=== PATIENT | female | born 1985 | race Caucasian/White ===

== ENCOUNTER 2018-02-09 16:06 | Emergency (ER) | payer OTHER ==
[~2018-02-09] VITALS: Ht 167.6 cm; Wt 74.8 kg
[2018-02-09] MEDS ORDERED: PROZAC10 M1 PO (16:17)
[2018-02-09 16:42] LABS: ABSOLUTE BASOPHILS 0.1 thou/uL (0.0-0.2); ABSOLUTE MONOCYTES 0.6 thou/uL (0.0-1.2); ABSOLUTE NEUTROPHILS 3.3 thou/uL (1.6-8.1); BASOPHILS 0.8 %; EOSINOPHILS 0.1 %; HEMOGLOBIN 14.9 gm/dL (12.0-15.0); LYMPHOCYTES 43.1 %; MCH 29.8 pg (26.0-34.0); MCHC 33.8 g/dL (28.0-37.0); MCV 88.2 fL (80.0-100.0); MONOCYTES 8.3 %; MPV 8.7 fl. (7.2-11.1); NUCLEATED RBCS 0 /100WBC; PLATELET COUNT* 393 thou/uL (150-400); POLYS 47.7 %; RBC 4.99 mil/uL (4.20-5.00); RDW-CV 13.2 % (10.5-14.5); WBC 6.9 thou/uL (4.0-11.0)
[2018-02-09 16:46] LABS: ANION GAP 19 mmol/L (7-16); BUN 7 mg/dL (7-18); CALCIUM 8.7 mg/dL (8.5-10.1); CHLORIDE 103 mmol/L (98-107); CO2 21 mmol/L (21-32); CREATININE 0.7 mg/dL (0.6-1.3); GLUCOSE 70 mg/dL (70-99); POTASSIUM 3.6 mmol/L (3.5-5.1); SODIUM 143 mmol/L (136-145)
[2018-02-09 16:48] LABS: APTT 24.8 Seconds (25.0-31.3); PROTIME 9.6 Seconds (9.20-11.50)
[2018-02-09 16:57] LABS: ALBUMIN 3.8 g/dL (3.4-5.0); ALKALINE PHOSPHATASE 93 U/L (46-116); NT-PRO BRAIN NAT PEPTIDE 13 pg/mL (<300); SGOT 32 U/L (15-37); SGPT 33 U/L (30-65); TOTAL BILIRUBIN 0.4 mg/dL (<0.1-1.0); TROPONIN-I LEVEL <0.06 ng/mL (<0.06)
[2018-02-09 17:18] LABS: SALICYLATE < 2.8 mg/dL (2.8-20.0)
[2018-02-09 17:27] LABS: ACETAMINOPHEN < 2 ug/mL (10-30); ALCOHOL 460 mg/dL (<10)
[2018-02-09 17:30] LABS: URINE BILIRUBIN NEGATIVE (Negative); URINE BLOOD TRACE (Negative); URINE CLARITY CLEAR; URINE COLOR YELLOW; URINE GLUCOSE-RANDOM NEGATIVE (Negative); URINE KETONES 1+ (Negative); URINE LEUKOCYTES-REFLEX NEGATIVE (Negative); URINE NITRITE-REFLEX NEGATIVE (Negative); URINE PROTEIN TRACE (Negative); URINE SPECIFIC GRAVITY <= 1.005 (1.005-1.030); URINE UROBILINOGEN 0.2 E.U./dl (0.2-1.0)
[2018-02-09 17:56] LABS: AMP/METHAMP Negative (Negative); BARBITURATES Negative (Negative); BENZODIAZEPINES Negative (Negative); COCAINE Negative (Negative); METHADONE Negative (Negative); OPIATES Negative (Negative); PCP Negative (Negative); THC Negative (Negative)
[2018-02-10 01:45] VITALS: BP 119/62
--- NOTE | 2018-02-11 10:23 | EKG ---
[place] [address] ELECTROCARDIOGRAM REPORT Name: JUAN ALBERTO ROSALES Room: [facility]#: [id number] Admission: 02/09/18 Attend Phys: Discharge: 02/10/18 Date of : 81 Report #: [id number] THIS REPORT FOR: //name// [facility] ED Test Date: 2018-02-09 Test Time: 16:42:06 Pat Name: JUAN ALBERTO ROSALES Department: Room: Gender: F Marble Mason: Bonita MARTINEZ : 1985 Requested By: Yusuf Barlow Order Number: [id number] MD: Cal Torrez Measurements Intervals [place] Rate: 98 P: 50 OK: 150 QRS: 19 QRSD: 85 T: 25 QT: 365 QTc: 467 Interpretive Statements Sinus rhythm Baseline wander in lead(s) V6 No previous ECG available for comparison Electronically Signed On 02-11-2018 10:22:56 CDT by Cal Torrez [email or web address] <ELECTRONICALLY SIGNED> By: Cal Torrez MD, [facility] 02/11/18 1022 41 41 Cal Torrez MD, FAC /EPI
== END 2018-02-10 01:45 | disposition home or self-care (01) ==
LOC: M.ERS 16:06
PROVIDERS: Family Medicine
DX: F32.9 Major depressive disorder, single episode, unspecified (principal); F10.129 Alcohol abuse with intoxication, unspecified